=== PATIENT | female | born 1990 | race Caucasian/White ===

== ENCOUNTER 2019-06-25 12:50 | Emergency (ER) | payer SELFPAY ==
[2019-06-25] MEDS ORDERED: Cephalexin 500 MG Cap PO ONE (12:51)
[2019-06-25] MEDS ORDERED: Sodium Chloride 0.9% 1,000 ML IV ONE (12:54)
[2019-06-25 14:19] LABS: CHLORIDE,CL 104 mmol/L (101-111); SODIUM,NA 138 mmol/L (135-145)
[2019-06-25] MEDS ORDERED: Potassium Chloride 10 MEQ in Premix Bag 1 BAG IV ONE (14:48)
[2019-06-25] MEDS ORDERED: Potassium Chloride 10 MEQ Tab.ER PO ONE (15:20)
[2019-06-25] MEDS ORDERED: Cephalexin 500 MG Cap ONE (15:33)
--- NOTE | 2019-06-25 15:36 | EDM.PDOC ---
Scribed by Beatris Edmond 06/25/19 [id number] for Gurmeet Morales PA ED HPI GENERAL MEDICAL PROBLEM - General Chief Complaint: Syncope Stated Complaint: FEELS LIKE GOING TO PASS OUT Time Seen by Provider: 06/25/19 13:12 Source of Information: Reports: Patient, RN, RN Notes Reviewed History Limitations: Reports: No Limitations - History of Present Illness INITIAL COMMENTS - FREE TEXT/NARRATIVE: Patient presents to ER stating she is dizzy for 2 days. She is nauseated. Today again she has dizziness. She feels like she would pass out. She has increased work stress. She used meth 2 days ago (last use) 1 time a day times 1 year. She smokes cigarettes daily. Her last use of marijuana was 2 days ago. Patient reports possible UTI. Onset: Gradual Duration: Getting Worse Quality: Reports: Ache Severity: Moderate Improves with: Reports: None Worsens with: Reports: None Associated Symptoms: Reports: No Other Symptoms - Related Data Allergies Allergy/AdvReac Type Severity Reaction Status Date / Time No Known Allergies Allergy Verified 06/25/19 14:21 ED ROS GENERAL - Review of Systems Review Of Systems: Comprehensive ROS is negative, except as noted in HPI. - Physical Exam Exam: See Below Exam Limited By: No Limitations General Appearance: Alert, WD/WN, No Apparent Distress Eye Exam: Bilateral Eye: EOMI, Normal Inspection, PERRL Ears: Normal External Exam, Normal Canal, Hearing Grossly Normal, Normal TMs Nose: Normal Inspection, Normal Mucosa, No Blood Throat/Mouth: Normal Inspection, Normal Lips, Normal Teeth, Normal Gums, Normal Oropharynx, Normal Voice, No Airway Compromise Head Exam: Atraumatic, Normocephalic Neck: Normal Inspection, Supple, Non-Tender, Full Range of Motion Respiratory/Chest: No Respiratory Distress, Lungs Clear, Normal Breath Sounds, No Accessory Muscle Use, Chest Non-Tender Cardiovascular: Normal Peripheral Pulses, Regular Rate, Rhythm, No Edema, No Gallop, No JVD, No Murmur, No Rub GI/Abdominal: Normal Bowel Sounds, Soft, Non-Tender, No Organomegaly, No Distention, No Abnormal Bruit, No Mass (Female) Exam: Deferred Rectal (Female) Exam: Deferred Neuro Exam (Abbreviated): Alert, Oriented, CN II-XII Intact, Normal Cognition, Normal Gait, Normal Reflexes, No Motor/Sensory Deficits Back Exam: Normal Inspection, Full Range of Motion, NT Extremities: Normal Inspection, Normal Range of Motion, Non-Tender, No Pedal Edema, Normal Capillary Refill Psychiatric: Normal Affect, Normal Mood Skin Exam: Other (right breast lump were she has been injecting meth. Left bresat lump where she has been injecting meth. ) Course - Vital Signs Last Recorded V/S: Last Vital Signs Temp 35.9 C 06/25/19 13:01 Pulse 72 06/25/19 13:01 Resp 9 L 06/25/19 13:01 BP 93/51 L 06/25/19 13:01 Pulse Ox 100 06/25/19 13:01 - Orders/Labs/Meds Orders: Active Orders 24 hr Category Date Time Status EKG Documentation Completion [RC] URGENT Care 06/25/19 12:53 Active CULTURE URINE [RM] Stat Lab 06/25/19 14:19 Received Potassium Chloride [KCl 10 MEQ in Water 100 ML] 10 meq Med 06/25/19 14:48 Active Premix Bag 1 bag IV ONETIME Medication Orders Potassium Chloride 10 meq/ (Premix) 100 mls @ 100 mls/hr IV ONETIME ONE Stop: 06/25/19 15:47 Last Admin: 06/25/19 14:56 Dose: 100 mls/hr Labs: Laboratory Tests 06/25/19 06/25/19 06/25/19 Range/Units 13:01 13:01 13:01 WBC 6.8 (5.0-10.0) 10^3/uL RBC 4.19 L (4.2-5.4) 10^6/uL Hgb 12.1 (12.0-16.0) g/dL Hct 35.4 L (37.0-47.0) % MCV 84.5 (80-100) fL MCH 28.9 (27.0-34.0) pg MCHC 34.2 (33.0-35.0) g/dL Plt Count 283 (150-450) 10^3/uL Neut % (Auto) 41.4 L (42.2-75.2) % Lymph % (Auto) 40.6 (20.5-50.1) % Grady % (Auto) 11.2 H (2-8) % Eos % (Auto) 6.5 H (1.0-3.0) % Baso % (Auto) 0.3 (0.0-1.0) % Sodium 138 (135-145) mmol/L Potassium 3.0 L (3.6-5.0) mmol/L Chloride 104 (101-111) mmol/L Carbon Dioxide 28.0 (21.0-31.0) mmol/L Anion Gap 9.0 BUN 11 (7-18) mg/dL Creatinine 0.7 (0.6-1.3) mg/dL Est Cr Clr Drug Dosing 93.79 mL/min Estimated GFR (MDRD) > 60 BUN/Creatinine Ratio 15.71 Glucose 89 (74-105) mg/dL Calcium 7.8 L (8.4-10.2) mg/dl Total Bilirubin 0.4 (0.2-1.0) mg/dL AST 34 (10-42) IU/L ALT 40 (10-60) IU/L Alkaline Phosphatase 37 L (42-121) IU/L Troponin I < 0.02 (0.00-0.02) ng/ml Total Protein 6.2 L (6.7-8.2) g/dl Albumin 3.2 (3.2-5.5) g/dl Globulin 3.0 Albumin/Globulin Ratio 1.07 Amylase 15 L (28-100) U/L Lipase 30 (22-51) U/L Urine Color (YELLOW) Urine Appearance (CLEAR) Urine pH (5.0-9.0) Ur Specific Malone (1.005-1.030) Urine Protein (NEGATIVE) Urine Glucose (UA) (NEGATIVE) Urine Ketones (NEGATIVE) Urine Occult Blood (NEGATIVE) Urine Nitrite (NEGATIVE) Urine Bilirubin (NEGATIVE) Urine Urobilinogen (0.2-1.0) mg/dL Ur Leukocyte Esterase (NEGATIVE) Urine RBC /HPF Urine WBC (0-5/HPF) /HPF Ur Epithelial Cells (NOT SEEN) /HPF Urine Bacteria (0-FEW/HPF) /HPF Urine Opiates Screen (NEGATIVE) Ur Oxycodone Screen (NEGATIVE) Urine Methadone Screen (NEGATIVE) Ur Barbiturates Screen (NEGATIVE) U Tricyclic Antidepress (NEGATIVE) Ur Phencyclidine Scrn (NEGATIVE) Ur Amphetamine Screen (NEGATIVE) U Methamphetamines Scrn (NEGATIVE) Urine MDMA Screen (NEGATIVE) U Benzodiazepines Scrn (NEGATIVE) Urine Cocaine Screen (NEGATIVE) U Marijuana (THC) Screen (NEGATIVE) Ethyl Alcohol < 5 mg/dL 06/25/19 06/25/19 Range/Units 14:19 14:19 WBC (5.0-10.0) 10^3/uL RBC (4.2-5.4) 10^6/uL Hgb (12.0-16.0) g/dL Hct (37.0-47.0) % MCV (80-100) fL MCH (27.0-34.0) pg MCHC (33.0-35.0) g/dL Plt Count (150-450) 10^3/uL Neut % (Auto) (42.2-75.2) % Lymph % (Auto) (20.5-50.1) % Grady % (Auto) (2-8) % Eos % (Auto) (1.0-3.0) % Baso % (Auto) (0.0-1.0) % Sodium (135-145) mmol/L Potassium (3.6-5.0) mmol/L Chloride (101-111) mmol/L Carbon Dioxide (21.0-31.0) mmol/L Anion Gap BUN (7-18) mg/dL Creatinine (0.6-1.3) mg/dL Est Cr Clr Drug Dosing mL/min Estimated GFR (MDRD) BUN/Creatinine Ratio Glucose (74-105) mg/dL Calcium (8.4-10.2) mg/dl Total Bilirubin (0.2-1.0) mg/dL AST (10-42) IU/L ALT (10-60) IU/L Alkaline Phosphatase (42-121) IU/L Troponin I (0.00-0.02) ng/ml Total Protein (6.7-8.2) g/dl Albumin (3.2-5.5) g/dl Globulin Albumin/Globulin Ratio Amylase (28-100) U/L Lipase (22-51) U/L Urine Color Yellow (YELLOW) Urine Appearance Clear (CLEAR) Urine pH 7.5 (5.0-9.0) Ur Specific Malone 1.015 (1.005-1.030) Urine Protein Negative (NEGATIVE) Urine Glucose (UA) Negative (NEGATIVE) Urine Ketones Negative (NEGATIVE) Urine Occult Blood Small H (NEGATIVE) Urine Nitrite Negative (NEGATIVE) Urine Bilirubin Negative (NEGATIVE) Urine Urobilinogen 0.2 (0.2-1.0) mg/dL Ur Leukocyte Esterase Trace H (NEGATIVE) Urine RBC 5-10 H /HPF Urine WBC 5-10 H (0-5/HPF) /HPF Ur Epithelial Cells Moderate H (NOT SEEN) /HPF Urine Bacteria Moderate H (0-FEW/HPF) /HPF Urine Opiates Screen Negative (NEGATIVE) Ur Oxycodone Screen Negative (NEGATIVE) Urine Methadone Screen Negative (NEGATIVE) Ur Barbiturates Screen Negative (NEGATIVE) U Tricyclic Antidepress Negative (NEGATIVE) Ur Phencyclidine Scrn Negative (NEGATIVE) Ur Amphetamine Screen Positive H (NEGATIVE) U Methamphetamines Scrn Positive H (NEGATIVE) Urine MDMA Screen Negative (NEGATIVE) U Benzodiazepines Scrn Negative (NEGATIVE) Urine Cocaine Screen Negative (NEGATIVE) U Marijuana (THC) Screen Negative (NEGATIVE) Ethyl Alcohol mg/dL Meds: Medications Generic Name Dose Route Start Last Admin Trade Name Freq PRN Reason Stop Dose Admin Potassium Chloride 10 meq/ 100 mls @ 100 mls/hr 06/25/19 14:48 06/25/19 14:56 Premix IV 06/25/19 15:47 100 mls/hr ONETIME ONE Administration Discontinued Medications Generic Name Dose Route Start Last Admin Trade Name Freq PRN Reason Stop Dose Admin Sodium Chloride 1,000 mls @ 999 mls/hr 06/25/19 12:54 06/25/19 13:06 Normal Saline IV 06/25/19 13:54 999 mls/hr .BOLUS ONE Administration Potassium Chloride 40 meq 06/25/19 15:20 06/25/19 15:24 Klor-Con 10 PO 06/25/19 15:21 40 meq ONETIME ONE Administration Departure - Departure Time of Disposition: 15:30 Disposition: Home, Self-Care 01 Condition: Fair Clinical Impression: Hypokalemia, Methamphetamine use UTI (urinary tract infection) Qualifiers: Urinary tract infection type: site unspecified Hematuria presence: with hematuria Qualified Code(s): N39.0 - Urinary tract infection, site not specified ; R31.9 - Hematuria, unspecified - Discharge Information *PRESCRIPTION DRUG MONITORING PROGRAM REVIEWED*: Not Applicable *COPY OF PRESCRIPTION DRUG MONITORING REPORT IN PATIENT SLIME: Not Applicable Instructions: Urinary Tract Infection, Adult, [id number], Stimulant Use Disorder-Methamphetamines, Hypokalemia Forms: ED Department Discharge Care Plan Goals: The patient was advised of the examination and lab results during the visit. The patient was given a liter of IV fluids and an oral dose of potassium while in the ED. The patient was discharged with 2 doses of Keflex (500 mg) to take 1 now and 1 at bedtime. The patient was also discharged with a script of Keflex ( 500 mg) #21 to take 1 by mouth 3 times per day for 7 days. The patient was advised to stop using methamphetamines and increase her oral fluid intake. If the patient has any additional symptoms or concerns, the patient should either return to the emergency department or visit her primary care facility. - My Orders Last 24 Hours: My Active Orders 06/25/19 12:53 EKG Documentation Completion [RC] URGENT 06/25/19 14:19 CULTURE URINE [RM] Stat 06/25/19 14:48 Potassium Chloride [KCl 10 MEQ in Water 100 ML] 10 meq Premix Bag 1 bag IV ONETIME - Assessment/Plan Last 24 Hours: My Active Orders 06/25/19 12:53 EKG Documentation Completion [RC] URGENT 06/25/19 14:19 CULTURE URINE [RM] Stat 06/25/19 14:48 Potassium Chloride [KCl 10 MEQ in Water 100 ML] 10 meq Premix Bag 1 bag IV ONETIME I have read and agree with the documentation that has been completed regarding this visit. By signing this record, I attest that the documentation was completed in my physical presence and is an accurate record of the encounter.
== END 2019-06-25 15:37 | disposition home or self-care (01) ==
LOC: DL.ED 12:50
DX: E87.6 Hypokalemia (principal); N39.0 Urinary tract infection, site not specified; F15.90 Other stimulant use, unspecified, uncomplicated
CPT/HCPCS: 36415; 80053; 80305; 80320; 81001; 82150; 83690; 84484; 85025; 87086; 87088; 87186; 93005; 96360; 96361; 99283; 99284; A9270; J3480; J7030; G0480